=== PATIENT | male | born 1980 | race Caucasian/White ===

== ENCOUNTER 2019-01-12 03:17 | Emergency (ER) | payer OTHER ==
[~2019-01-12] VITALS: Ht 180.3 cm; Wt 74.8 kg
[2019-01-12] MEDS ORDERED: NORCO 5-325 TA1 EACH PO (03:32)
[2019-01-12] MEDS ORDERED: PENICILLIN V P500 MG PO (03:32)
[2019-01-12] MEDS ORDERED: Magic Mouthwash SWISH&SPIT (03:32)
[2019-01-12 03:45] VITALS: BP 131/80
== END 2019-01-12 03:52 | disposition home or self-care (01) ==
LOC: M.ERS 03:17
DX: K08.89 Other specified disorders of teeth and supporting structures (principal); F17.210 Nicotine dependence, cigarettes, uncomplicated

== ENCOUNTER 2020-08-06 20:22 | Emergency (ER) | payer OTHER ==
[~2020-08-06] VITALS: Ht 182.9 cm; Wt 74.8 kg
[~2020-08-06 20:22] MED LIST: Magic Mouthwash SWISH&SPIT; NORCO 5-325 TA1 EACH PO; PENICILLIN V P500 MG PO
[2020-08-06 21:53] LABS: HEMATOCRIT 47.4 % (42.0-52.0); HEMOGLOBIN 15.8 gm/dL (14.0-18.0); MCH 30.4 pg (26.0-34.0); NUCLEATED RBCS 0 /100WBC; RDW-CV 13.9 % (10.5-14.5)
[2020-08-06 21:54] LABS: MCHC 33.3 g/dL (28.0-37.0); MCV 91.2 fL (80.0-100.0); MPV 7.1 fl. (7.2-11.1); PLATELET COUNT* 382 thou/uL (150-400)
[2020-08-06] MEDS ORDERED: CIPROFLOXACIN500 M1 PO (22:08)
[2020-08-06] MEDS ORDERED: ZOFRAN ODT4 MG SUBLING (22:08)
[2020-08-06 22:10] LABS: CALCIUM 9.1 mg/dL (8.5-10.1); POTASSIUM 3.8 mmol/L (3.5-5.1)
[2020-08-06 22:13] LABS: ALBUMIN 4.2 g/dL (3.4-5.0); TOTAL PROTEIN 7.7 g/dL (6.4-8.2)
[2020-08-06 22:27] VITALS: BP 110/70
[2020-08-06 22:54] LABS: ABSOLUTE EOSINOPHILS 0.2 thou/uL (0.0-0.7); ABSOLUTE LYMPHOCYTES 1.4 thou/uL (0.8-5.3); ABSOLUTE MONOCYTES 0.5 thou/uL (0.0-1.2); ABSOLUTE NEUTROPHILS 13.9 thou/uL (1.6-8.1); PLATELET ESTIMATE ADEQUATE
== END 2020-08-06 22:27 | disposition home or self-care (01) ==
LOC: M.ERS 20:22
PROVIDERS: Family Medicine
DX: B34.9 Viral infection, unspecified (principal); R11.2 Nausea with vomiting, unspecified; Z20.828 Contact with and (suspected) exposure to other viral communicable diseases